=== PATIENT | female | born 1965 | race Caucasian/White ===

== ENCOUNTER 2019-04-11 07:45 | Day surgery (SDC) | payer BC, OTHER ==
[2019-04-10 16:53] VITALS: BMI 37.9
[2019-04-11 08:28] VITALS: TEMP 98.4
[2019-04-11] MEDS ORDERED: LIDOCAINE HCL 1%, 10 MG/ML (20ML VIAL) ONE (09:47)
--- NOTE | 2019-04-11 09:59 | HP ---
Satellite H - Chief Complaint Chief Complaint: right hand pain/tingling - Past Medical History Allergies/Adverse Reactions: Allergies Allergy/AdvReac Type Severity Reaction Status Date / Time Penicillins Allergy Intermediate Hives Verified 04/11/19 08:15 ...LMP: 03/14/19 - Current Medications Current Medications: Home Medications Medication Instructions Recorded Hydrochlorothiazide [Hctz -] 12.5 mg PO DAILY 04/10/19 Linaclotide [Linzess] 72 mcg PO DAILY 04/10/19 Lisinopril 5 mg PO HS 04/10/19 Hydrocodone/Acetaminophen 1 each PO Q6H #15 tablet MDD 4 04/11/19 [Hydrocodone-Acetamin 5-325 mg] Satellite Physical Exam - Physical Examination Vital Signs: Vital Signs Period Temp Pulse Resp BP Sys/Levine Pulse Ox Last 24 Hr 98.4 F 75 18 116/75 96 General Appearance: Well Nourished, Well Developed, Alert & Oriented x3 ENT: Clear Lung: Normal air movement Extremities: Other (right hand- + tinels, + phalens, emg + cts) Neurological: Intact, Alert, Oriented Satellite Impression/Plan - Impression/Plan Impression: right cts Operative Procedure: right ctr Date to be Performed: 04/11/19
[2019-04-11] MEDS ORDERED: PROPOFOL 20 ML ONE ×2 (10:34)
[2019-04-11] MEDS ORDERED: MIDAZOLAM HCL 2 MG/2 ML SINGLE DOSE VIAL ONE (10:34)
[2019-04-11] MEDS ORDERED: ceFAZolin SODIUM 1 GM VIAL IVPB ONE (10:35)
[2019-04-11] MEDS ORDERED: LIDOCAINE HCL 1%, 10 MG/ML (20ML VIAL) NR ONE ×2 (10:47)
[2019-04-11] MEDS ORDERED: BUPIVACAINE HCL/PF 0.5% (5 MG/ML) 30 ML VIAL IJ ONE (10:47)
--- NOTE | 2019-04-11 11:22 | OP ---
Operative Note - Note: Operative Date: 04/11/19 ([facility]) Pre-Operative Diagnosis: right cts Operation: right ctr Post-Operative Diagnosis: Same as Pre-op Surgeon: Geovany Steiner [employer] Billing Analyst: Jack Paredes Anesthesiologist/POLICE RECORDS CLERK: Liv Cedeno Anesthesia: General, Local Specimens Removed: tenosynovium Estimated Blood Loss (mls): 0 (tourniquet)
[2019-04-11] MEDS ORDERED: ONDANSETRON 4 MG/2 ML VIAL IVPUSH PRN (12:13)
[2019-04-11 13:05] VITALS: BP 117/70; PULSE 77
--- NOTE | 2019-04-12 18:55 | PATH ---
Surgical Pathology Report Patient Name: ANDREW BROWN [facility]. Rec. #: [id number] /Age/Gender: 1965 (Age: 53) / F Account: [id number] Location: [facility] SURGICAL Taken: 04/11/2019 Received: 04/11/2019 Reported: 04/12/2019 Physicians: Jack Paredes M.D. Specimen(s) Received RIGHT HAND TENOSYNOVIUM Clinical History Right carpal tunnel syndrome Final Diagnosis RIGHT HAND TENOSYNOVIUM, EXCISION: TENOSYNOVIAL TISSUE WITH FOCAL FIBROSIS. Electronically Signed Phil Pedro M.D. Gross Description Received in formalin labeled "tenosynovium right hand," is a 2.7 x 2.3 x 0.3 cm aggregate of multiple zurita-yellow portions of soft tissue, consistent with tenosynovium. The specimen is submitted in toto in one cassette. /04/11/2019 saudi/04/11/2019
--- NOTE | 2019-04-18 10:18 | SPEC ---
DATE OF OPERATION: 04/11/2019 PREOPERATIVE DIAGNOSIS: Right carpal tunnel syndrome. POSTOPERATIVE DIAGNOSIS: Right carpal tunnel syndrome. OPERATION: Right carpal tunnel release and tenosynovectomy. SURGEON: Geovany Steiner MD ASSISTANTS: Jack Paredes M.D. ANESTHESIA: MAC, local injection with 10 mL of 0.5% Marcaine and 1% Lidocaine mix. ANESTHESIOLOGIST: Liv Cedeno CRNA DRAINS: None. COMPLICATIONS: None. SPECIMENS: Tenosynovium, right wrist. BLOOD LOSS: None. BLOOD GIVEN: None. FLUID REPLACEMENT: 500 mL of Plasmalyte. INDICATIONS: This patient is a 53-year-old female with a preoperative diagnosis of severe right carpal tunnel syndrome. After understanding the potential risks, complications, alternatives and benefits of surgery versus nonsurgical treatment, the patient elected to undergo this procedure. DESCRIPTION OF PROCEDURE: The patient was brought to the operating room, peripheral IV placed and intravenous sedation was given. One gram of intravenous Ancef was given. MAC anesthesia was induced. A tourniquet was applied to the right upper arm and the right upper extremity was prepped and draped in sterile fashion. The entire case was done under 3.8 loupe magnification. A marking pen was utilized to reed out a longitudinal incision in an already existing skin crease. Twenty mL of 0.5% Marcaine mixed with 1% Lidocaine was injected in and around the surgical incision. The right upper extremity was elevated, exsanguinated with an Esmarch bandage and the tourniquet inflated to 250 mmHg. A No. 15 scalpel blade was utilized to cut down through the skin. Subcutaneous hemostasis was achieved with the bipolar cautery. Dissection was done through the superficial palmar fascia. Self-retaining retractors were placed into the wound. Under direct visualization, the transverse carpal ligament was transected with a No. 15 scalpel blade, exposing the median nerve and the contents of the carpal tunnel. The distal and proximal extents of the release were completed with a Littler scissor and checked with irrigation and my small finger. They were seen to be complete. Limited dissection was done on the radial side of the median nerve and more extensive dissection was done on the ulnar side of the median nerve. The patients nerve was seen to be quite compressed by epineurium and therefore a limited epineurotomy was performed. A Ragnell retractor was used to gently retract the median nerve in a radial direction. The patient had a lot of tenosynovitis and therefore a tenosynovectomy was performed off all 9 flexor tendons. This was passed off the field as tenosynovium right wrist. The floor of the carpal tunnel was checked. There were no abnormal masses or ganglion cysts. The area was copiously irrigated and washed out and closure begun. Undyed 4-0 Vicryl was used to close the deep dermal layer. Final skin reapproximation was done with horizontal mattress 4-0 nylon sutures. The area was then washed and dried, covered with Xeroform, 4x4s, fluffs between the fingers, Webril and a 4-inch plaster roll was utilized to make a volar splint, which was then wrapped with Li and Coban. The tourniquet was taken down after a total tourniquet time of minutes. There were no complications during the case. The patient tolerated the procedure well and was brought to the ambulatory recovery room in stable condition. Stuart [id number]
== END 2019-04-11 12:50 | disposition home or self-care (01) ==
LOC: JASU-SURG 07:45
PROVIDERS: ATTEND Orthopaedic Surgery
PROC: 01N50ZZ Release Median Nerve, Open Approach (ICD-10-PCS; principal; 2019-04-11 10:30)
DX: G56.01 Carpal tunnel syndrome, right upper limb (principal)
CPT/HCPCS: 84703

== ENCOUNTER 2020-03-04 09:37 | Day surgery (SDC) | payer BC, OTHER ==
[2020-02-27 12:16] VITALS: BMI 39.9
[~2020-03-04 09:37] MED LIST: CEFAZOLIN 2 GM in DEXTROSE 5%-WATER - 50 ML IVPB ONE; CELECOXIB 200 MG CAPSULE PO ONE; TRANEXAMIC ACID 1000 MG/10 ML VIAL IVPUSH ONE; VANCOMYCIN 1,000 MG VIAL (RESTRICTED TO ID ONLY) IVPB ONE; ceFAZolin SODIUM 1 GM VIAL IVPB ONE
[2020-03-04] MEDS ORDERED: CEFAZOLIN 2 GM in DEXTROSE 5%-WATER - 50 ML IVPB ONE (10:42)
[2020-03-04] MEDS ORDERED: CELECOXIB 200 MG CAPSULE PO ONE ×2 (10:56→12:00)
[2020-03-04] MEDS ORDERED: PROPOFOL 20 ML ONE ×3 (11:45→14:37)
[2020-03-04] MEDS ORDERED: ePHEDrine SULFATE 50 MG/1 ML AMPULE ONE (11:45)
[2020-03-04] MEDS ORDERED: TRANEXAMIC ACID 1000 MG/10 ML VIAL ONE (11:45)
[2020-03-04] MEDS ORDERED: TRANEXAMIC ACID 1000 MG/10 ML VIAL IVPUSH ONE (12:00)
[2020-03-04] MEDS ORDERED: MIDAZOLAM HCL 2 MG/2 ML SINGLE DOSE VIAL ONE ×3 (12:21→15:41)
[2020-03-04] MEDS ORDERED: BUPIVACAINE LIPOSOME/PF (EXPAREL) 266 MG/20 ML VIAL ONE (12:22)
[2020-03-04] MEDS ORDERED: SODIUM CHLORIDE 0.9% P/F 10 ML VIAL IJ ONE (12:22)
[2020-03-04] MEDS ORDERED: VANCOMYCIN 1,000 MG VIAL (RESTRICTED TO ID ONLY) ONE (13:18)
[2020-03-04] MEDS ORDERED: ceFAZolin SODIUM 1 GM VIAL ONE (13:18)
[2020-03-04] MEDS ORDERED: ONDANSETRON 4 MG/2 ML VIAL IVPUSH PRN (14:34)
[2020-03-04] MEDS ORDERED: MAG HYDROX/AL HYDROX/SIMETH 30 ML UNIT-DOSE CUP PO PRN (14:34)
[2020-03-04] MEDS ORDERED: MAGNESIUM HYDROX 2400MG/30ML ORAL SUSPENSION 30 ML CUP PO PRN (14:34)
[2020-03-04] MEDS ORDERED: LACTATED RINGERS SOLUTION 1,000 ML IV SCH (14:45)
[2020-03-04] MEDS ORDERED: VANCOMYCIN 1,000 MG VIAL (RESTRICTED TO ID ONLY) IVPB ONE (15:10)
[2020-03-04] MEDS ORDERED: ceFAZolin SODIUM 1 GM VIAL IVPB ONE (15:10)
[2020-03-04] MEDS ORDERED: ACETAMINOPHEN 1000 MG/100 ML BAG IVPB ONE (16:52)
[2020-03-04] MEDS ORDERED: oxyCODONE HCL 5 MG TABLET PO PRN (16:52)
[2020-03-04] MEDS ORDERED: traMADol HCL 50 MG TABLET PO PRN (16:52)
[2020-03-04] MEDS: ACETAMINOPHEN 325 MG TABLET (FP) PO SCH ×2 (20:56→22:32)
[2020-03-04] MEDS: oxyCODONE HCL 10 MG SUSTAINED ACTING TABLET PO SCH (22:30)
[2020-03-04] MEDS: SENNOSIDES/DOCUSATE COMBO (SENNA PLUS) TABLET (UD) PO SCH (22:30)
[2020-03-04] MEDS: oxyCODONE HCL 5 MG TABLET PO PRN (22:31)
[2020-03-04] MEDS: CEFAZOLIN 2 GM/D5W 2 GM/50 ML ML IVPB SCH (22:33)
[2020-03-05 01:48] VITALS: BP 97/68; PULSE 103; TEMP 98.7
[2020-03-05] MEDS: ACETAMINOPHEN 325 MG TABLET (FP) PO SCH ×2 (06:22→11:05)
[2020-03-05] MEDS: oxyCODONE HCL 5 MG TABLET PO PRN (06:25)
[2020-03-05] MEDS: CEFAZOLIN 2 GM/D5W 2 GM/50 ML ML IVPB SCH ×2 (07:35→13:30)
[2020-03-05] MEDS ORDERED: ASPIRIN 325 MG TABLET PO SCH (08:00)
[2020-03-05 08:27] LABS: HEMATOCRIT 34.7 % (32.4-45.2); HEMOGLOBIN 11.9 GM/dl (10.7-15.3); MCH 29.9 pg (25.7-33.7); MCHC 34.4 g/dl (32.0-36.0); MEAN CELL VOLUME 86.8 fl (80-96); MEAN PLT VOLUME 8.8 fl (7.5-11.1); PLATELET COUNT 251 K/MM3 (134-434); RDW 13.7 % (11.6-15.6); WHITE BLOOD COUNT 6.6 K/mm3 (4.0-10.8)
[2020-03-05] MEDS ORDERED: PANTOPRAZOLE 40 MG TABLET PO SCH (10:00)
[2020-03-05] MEDS ORDERED: MULTIVITAMINS (DAILY MVI) TABLET (FP) PO SCH (10:00)
[2020-03-05] MEDS ORDERED: LISINOPRIL 5 MG TABLET PO SCH (10:00)
[2020-03-05] MEDS ORDERED: HYDROCHLOROTHIAZIDE 12.5 MG CAPSULE (FP) PO SCH (10:00)
[2020-03-05] MEDS: SENNOSIDES/DOCUSATE COMBO (SENNA PLUS) TABLET (UD) PO SCH (10:04)
[2020-03-05] MEDS: oxyCODONE HCL 10 MG SUSTAINED ACTING TABLET PO SCH (10:04)
== END 2020-03-05 16:03 | disposition home health service (06) ==
LOC: FM/S 09:37 → FASUSAT 09:37 → FM/S 10:42 → FASUSAT 03-05 16:03
PROVIDERS: ATTEND Orthopaedic Surgery
PROC: 8E0YXBZ Computer Assisted Procedure of Lower Extremity (ICD-10-PCS; 2020-03-04)
PROC: 8E0Y0CZ Robotic Assisted Procedure of Lower Extremity, Open Approach (ICD-10-PCS; 2020-03-04)
PROC: 0SRD0J9 Replacement of Left Knee Joint with Synthetic Substitute, Cemented, Open Approach (ICD-10-PCS; 2020-03-04)
PROC: 8E0YXBZ Computer Assisted Procedure of Lower Extremity (ICD-10-PCS; 2020-03-04)
PROC: 0SRD0J9 Replacement of Left Knee Joint with Synthetic Substitute, Cemented, Open Approach (ICD-10-PCS; principal; 2020-03-04 14:36)
DX: M17.12 Unilateral primary osteoarthritis, left knee (principal)
CPT/HCPCS: 20985; 27447; C1776; S2900; 36415; 73560-TC-LT-FY; 85027; 88305-TC; 88311-TC; 94760; 97010-GP; 97116-GP; 97163-GP; J0131